=== PATIENT | male | born 1935 | race Caucasian/White ===

== ENCOUNTER → 2017-12-14 12:09 | Outpatient (CLI) | payer MEDICARE, SELFPAY ==
[2017-12-14 12:44] LABS: Basophils # 0.1 K/mm3 (0-0.2); Basophils % 0.7 % (0.1-2.0); Eosinophils # 0.1 K/mm3 (0.0-0.4); Eosinophils % 0.8 % (0.1-12.0); Hematocrit 41.7 % (42.0-52.0); Hemoglobin 13.9 g/dL (14.1-18.0); Lymphocytes # 1.4 K/mm3 (0.7-4.5); Lymphocytes % 19.7 K/mm3 (10-50); Mean Corpuscular HGB Conc 33.3 g/dL (31.8-35.4); Mean Corpuscular Volume 99.3 fl (80-94); Mean Platelet Volume 7.1 fl (7.4-10.4); Monocytes # 0.4 K/mm3 (0.1-1.0); Monocytes % 5.7 % (1.7-9.3); Neutrophils % 73.1 % (37.0-80.0); Platelet Count 230 K/mm3 (142-424); Red Cell Distribution Width 13.9 % (11.5-17.5); White Blood Count 6.9 K/mm3 (4.8-10.8)
[2017-12-14 13:49] LABS: Anion Gap 10.2 mEq/L (5-15); Blood Urea Nitrogen 20 mg/dL (7-18); Carbon Dioxide 28 mmol/L (21.0-32.0); Chloride 106 mmol/L (98-107); Creatinine,Serum 0.88 mg/dL (0.70-1.30); Estimated Glomerular Filt Rate 83 ml/min (>60); GFR (African American) 101 ML/MIN (>60); Glucose 193 mg/dL (74-106); Potassium 4.2 mmoL/L (3.5-5.1); Sodium 140 mmol/L (136-145)
== END ==
PROVIDERS: PCP Family Medicine; Visit Provider Orthopaedic Surgery
DX: M25.562 Pain in left knee (principal); Z01.818 Encounter for other preprocedural examination; S83.241A Other tear of medial meniscus, current injury, right knee, initial encounter
CPT/HCPCS: 36415; 80048; 85025; 93005

== ENCOUNTER 2017-12-19 06:00 | Day surgery (SDC) | payer MEDICARE, SELFPAY ==
[2017-12-16 12:51] VITALS: BMI 24.3
[2017-12-19] VITALS (12 sets, daily range): BP systolic 104–160; BP diastolic 55–77; PULSE 55–78; RESP 12–26; TEMP 36.2–36.6; O2SAT 94–98
--- NOTE | 2017-12-19 06:59 | HMH.ANESCL ---
[facility] Anesthesia Checklist - Structural Data Admitted From: Home Planned Operative Procedure/s: knee arthroscopy Consent for Planned Operative Procedure(s) Verified: Yes Verified Documents: Surgical Consent - Airway Assessment C-Spine Mobility Assessed: Yes TMJ Mobility Assessed: Yes Dentition: Good Dentition - Neurological Assessment Level of Consciousness: Awake, Alert - Anesthesia Plan Anesthesia Risk discussed: Yes Anesthesia Plan: Verified ASA Class: II Anesthesia Type: General [facility] Anesthesia HX I have reviewed the patient's past medical history: Yes Medical History: Reports:: Cancer (PROSTATE) Denies:: Diabetes Mellitus Type 1, Diabetes Mellitus Type 2, Internal Pacemaker, MRSA, Seizures Other Medical History: Reports: Arthritis, Cataracts, Sinus Problems. Denies: Blood Transfusion Reaction Other Surgeries: Yes: Cancer Surgery, Hernia Repair, Other. No: Pacemaker Amputation: No Fractures: No *Family Hx:: Coronary Artery Disease, Hyperlipidemia, Hypertension
--- NOTE | 2017-12-19 09:10 | P.PN_ITS ---
[facility] Anesthesia Record Part II Discharge Time: 09:40 Destination: [facility] PACU nurse assessment reviewed?: Yes Patient Condition:: Good Anesthesia Complications:: None
--- NOTE | 2017-12-19 09:10 | P.PN_ITS ---
[facility] Anesthesia Record Part I Intake, IV Amount: 1,100 Estimated blood loss (mL): 0 Urine output (mL): 0 Blood Pressure: 137/75 SaO2: 95 Pulse Rate: 78 Respiratory Rate: 12 Temperature: 97.8 F Patient is:: Drowsy, Stable Stable to PACU at:: 09:10
--- NOTE | 2017-12-19 09:10 | HMH.ANESII ---
[facility] Anesthesia Record Part II Discharge Time: 09:40 Destination: [facility] PACU nurse assessment reviewed?: Yes Patient Condition:: Good Anesthesia Complications:: None
--- NOTE | 2017-12-20 11:13 | HMH.OPNOTE ---
Date of procedure: 12/19/17 Pre-op Diagnosis:: Left knee medial meniscal tear Post-op diagnosis:: other (1)Left knee medial meniscal tear 2) left knee medial plica syndrome) Procedure performed:: 1) arthroscopic debridement complex left medial meniscal tear 2) arthroscopic debridement symptomatic left medial plica syndrome Surgeon:: Patrick Breen MD TRAINING INSTRUCTOR:: Other Anesthesia: LMA Estimated blood loss (mL): 2 Operative findings:: The patient is an 82-year-old male with a degenerative left medial meniscal tear which is complex in nature. This is been symptomatic and is continuing to be painful to the patient and places him at risk for the knee buckling and for him falling. Arthroscopic debridement is indicated to remove the tear as a source of pain. An incidental finding of a symptomatic medial plica rubbing and abrading the articular cartilage of the medial femoral condyle was encountered as well. Due to its effect on the articular cartilage, reduction of the plica is indicated. Both these procedures are medically necessary and appropriate and are considered standard of care Examination under anesthesia showed the need to be ligamentously stable. The patella tracked normally within the trochlea. Grade 1 and 2 chondromalacial changes of the patella were present. Overall, the articular cartilage was in surprisingly good condition for an 82-year-old gentleman. There was a symptomatic medial plica draping over the medial femoral condyle. This was clearly abrading the cartilage. A complex degenerative medial meniscal tear was present in the posterior aspect of the medial meniscus. The anterior medial meniscus was unremarkable and the posterior horn itself was intact. The anterior and posterior cruciate ligaments were intact. The lateral compartment was in excellent condition with minor fraying changes of the meniscus and mild degenerative changes of the articular cartilage. The medial and lateral gutters were cleaned and no loose bodies were found. The suprapatellar pouch showed no evidence of loose bodies. ARTHROSCOPIC IMAGES 001 shows the anterior cruciate ligament 002-005 show the lateral compartment and lateral meniscus 006 shows the central ridge of the patella. 007-008 of the lateral and medial aspects of the patellofemoral joint respectively 009 shows grade 3 changes of the medial femoral condyle 010 as the anterior and mid substance of the medial meniscus as well as the medial femoral condyle 011 shows the degenerative tear of the posterior aspect the medial femoral condyle 012 shows grade III chondromalacia of the medial femoral condyle more posteriorly than 011 013 shows the meniscal tear again 014-does the medial meniscus status post debridement not 015-016 debridement of the medial synovial plica 017-018 showed the plica status post debridement not now no longer engaging the medial femoral condyle and demonstrating an area of abrasion of the articular cartilage of the medial femoral condyle caused by the plica Operative note:: The patient was given a general anesthetic all body parts were well padded. The involved left knee was prepped and draped in the usual sterile fashion and the right knee was placed in a well leg li, again well padded. Examination under anesthesia was conducted and the proposed portal sites injected with lidocaine with epinephrine. 6 mL total was used. We then created an inferior anterolateral portal, inserted the 4 mm 30? arthroscope, and perform the initial examination of the knee. The notch was inspected the patient was placed in a figure 4 position. The suprapatellar pouch and the patellofemoral articulation was visualized. The medial lateral gutters were visualized. To optimize visualization medially, we gently stressed the patient against a lateral post. With assistance of a spinal needle, we created the inferior anteromedial portal and through the 2 portals conducted the surgery. We used a probe
--- NOTE | 2017-12-20 11:18 | P.OP_ITS ---
Date of procedure: 12/19/17 Pre-op Diagnosis:: Left knee medial meniscal tear Post-op diagnosis:: other (1)Left knee medial meniscal tear 2) left knee medial plica syndrome) Procedure performed:: 1) arthroscopic debridement complex left medial meniscal tear 2) arthroscopic debridement symptomatic left medial plica syndrome Surgeon:: Patrick Breen MD EYEGLASS FITTER:: Other Anesthesia: LMA Estimated blood loss (mL): 2 Operative findings:: The patient is an 82-year-old male with a degenerative left medial meniscal tear which is complex in nature. This is been symptomatic and is continuing to be painful to the patient and places him at risk for the knee buckling and for him falling. Arthroscopic debridement is indicated to remove the tear as a source of pain. An incidental finding of a symptomatic medial plica rubbing and abrading the articular cartilage of the medial femoral condyle was encountered as well. Due to its effect on the articular cartilage, reduction of the plica is indicated. Both these procedures are medically necessary and appropriate and are considered standard of care Examination under anesthesia showed the need to be ligamentously stable. The patella tracked normally within the trochlea. Grade 1 and 2 chondromalacial changes of the patella were present. Overall, the articular cartilage was in surprisingly good condition for an 82-year-old gentleman. There was a symptomatic medial plica draping over the medial femoral condyle. This was clearly abrading the cartilage. A complex degenerative medial meniscal tear was present in the posterior aspect of the medial meniscus. The anterior medial meniscus was unremarkable and the posterior horn itself was intact. The anterior and posterior cruciate ligaments were intact. The lateral compartment was in excellent condition with minor fraying changes of the meniscus and mild degenerative changes of the articular cartilage. The medial and lateral gutters were cleaned and no loose bodies were found. The suprapatellar pouch showed no evidence of loose bodies. ARTHROSCOPIC IMAGES 001 shows the anterior cruciate ligament 002-005 show the lateral compartment and lateral meniscus 006 shows the central ridge of the patella. 007-008 of the lateral and medial aspects of the patellofemoral joint respectively 009 shows grade 3 changes of the medial femoral condyle 010 as the anterior and mid substance of the medial meniscus as well as the medial femoral condyle 011 shows the degenerative tear of the posterior aspect the medial femoral condyle 012 shows grade III chondromalacia of the medial femoral condyle more posteriorly than 011 013 shows the meniscal tear again 014-does the medial meniscus status post debridement not 015-016 debridement of the medial synovial plica 017-018 showed the plica status post debridement not now no longer engaging the medial femoral condyle and demonstrating an area of abrasion of the articular cartilage of the medial femoral condyle caused by the plica Operative note:: The patient was given a general anesthetic all body parts were well padded. The involved left knee was prepped and draped in the usual sterile fashion and the right knee was placed in a well leg li, again well padded. Examination under anesthesia was conducted and the proposed portal sites injected with lidocaine with epinephrine. 6 mL total was used. We then created an inferior anterolateral portal, inserted the 4 mm 30? arthroscope, and perform the initial examination of the knee. The notch was inspected the patient was placed in a figure 4 position. The suprapatellar pouch and the patellofemoral articulation was visualized. The me
== END 2017-12-19 11:07 | disposition home or self-care (01) ==
PROVIDERS: Family Provider Family Medicine; PCP Family Medicine; Visit Provider Orthopaedic Surgery
PROC: (CPT 29870; principal; 2017-12-19 07:30)
DX: M67.52 Plica syndrome, left knee (principal); M23.204 Derangement of unspecified medial meniscus due to old tear or injury, left knee
CPT/HCPCS: 29881; 96374; J2405

== ENCOUNTER → 2018-09-27 07:29 | Outpatient (CLI) | payer MEDICARE, SELFPAY ==
[2018-09-27 09:53] LABS: Alanine Aminotransferase 20 U/L (12-78); Albumin Level 3.7 gm/dL (3.4-5.0); Albumin/Globulin Ratio 1.8 (1.1-1.8); Alkaline Phosphatase 75 U/L (46-116); Anion Gap 12.6 mEq/L (5-15); Aspartate Amino Transferase 14 U/L (15-37); Bilirubin,Total 0.5 mg/dL (0.2-1.0); Blood Urea Nitrogen 20 mg/dL (7-18); Calcium 8.6 mg/dL (8.5-10.1); Carbon Dioxide 28 mmol/L (21.0-32.0); Chloride 110 mmol/L (98-107); Chol/HDL Ratio 3.3 (1-3.5); Cholesterol 109 mg/dL (140-200); Creatinine,Serum 0.95 mg/dL (0.70-1.30); Estimated Glomerular Filt Rate 76 ml/min (>60); GFR (African American) 92 ML/MIN (>60); Globulin 2.1 gm/dl (1.3-3.2); Glucose 101 mg/dL (74-106); HDL Cholesterol 33 mg/dL (27-67); LDL Cholesterol 59 mg/dL (0-130); Potassium 4.6 mmoL/L (3.5-5.1); Sodium 146 mmol/L (136-145); Thyroid Stimulating Hormone 3.01 uIU/ml (0.358-3.740); Total Protein,Serum 5.8 gm/dL (6.4-8.2); Triglycerides 84 mg/dL (30-200); VLDL Cholesterol 17 mg/dL (0-40)
[2018-09-27 09:58] LABS: Prostate Specific Ag, Diagnost 0.03 ng/mL (0.0-4.0)
[2018-09-27 13:23] LABS: Hemoglobin A1C 5.7 % (0.0-7.0)
== END ==
PROVIDERS: Visit Provider Physician Assistant
DX: E78.2 Mixed hyperlipidemia (principal); E03.9 Hypothyroidism, unspecified; Z86.39 Personal history of other endocrine, nutritional and metabolic disease; Z85.46 Personal history of malignant neoplasm of prostate; Z00.00 Encounter for general adult medical examination without abnormal findings
CPT/HCPCS: 36415; 80053; 80061; 83036; 84153; 84443

== ENCOUNTER → 2019-10-01 07:38 | Outpatient (CLI) | payer MEDICARE, SELFPAY ==
[2019-10-01 10:03] LABS: Alanine Aminotransferase 16 U/L (12-78); Albumin Level 3.7 gm/dL (3.4-5.0); Albumin/Globulin Ratio 1.9 (1.1-1.8); Alkaline Phosphatase 65 U/L (46-116); Anion Gap 12.1 mEq/L (5-15); Aspartate Amino Transferase 11 U/L (15-37); Bilirubin,Total 0.5 mg/dL (0.2-1.0); Blood Urea Nitrogen 20 mg/dL (7-18); Calcium 8.7 mg/dL (8.5-10.1); Carbon Dioxide 28 mmol/L (21.0-32.0); Chloride 111 mmol/L (98-107); Chol/HDL Ratio 2.9 (1-3.5); Cholesterol 114 mg/dL (140-200); Creatinine,Serum 0.89 mg/dL (0.70-1.30); Estimated Glomerular Filt Rate 82 ml/min (>60); GFR (African American) 99 ML/MIN (>60); Globulin 1.9 gm/dl (1.3-3.2); Glucose 113 mg/dL (74-106); HDL Cholesterol 39 mg/dL (27-67); LDL Cholesterol 62 mg/dL (0-130); Potassium 4.1 mmoL/L (3.5-5.1); Sodium 147 mmol/L (136-145); Thyroid Stimulating Hormone 3.36 uIU/ml (0.358-3.740); Total Protein,Serum 5.6 gm/dL (6.4-8.2); Triglycerides 66 mg/dL (30-200); VLDL Cholesterol 13 mg/dL (0-40)
[2019-10-01 10:21] LABS: Prostate Specific Ag Screen < 0.1 ng/mL (0.0-4.0)
[2019-10-01 10:23] LABS: Hemoglobin A1C 6.1 % (0.0-7.0)
== END ==
PROVIDERS: Visit Provider Physician Assistant
DX: I10 Essential (primary) hypertension (principal); E78.2 Mixed hyperlipidemia; Z13.29 Encounter for screening for other suspected endocrine disorder; Z86.39 Personal history of other endocrine, nutritional and metabolic disease; Z12.5 Encounter for screening for malignant neoplasm of prostate; Z85.46 Personal history of malignant neoplasm of prostate
CPT/HCPCS: 36415; 80053; 80061; 83036; 84443; G0103

== ENCOUNTER → 2020-09-26 07:49 | Outpatient (CLI) | payer MEDICARE, SELFPAY ==
[2020-09-26 07:55] LABS: MANUAL DIFFERENTIAL MANUAL DIFFERENTIAL (MANUAL DIFF)
[2020-09-26 08:35] LABS: Basophils # 0.1 K/mm3 (0-0.2); Basophils % 0.7 % (0.1-2.0); Eosinophils # 0.1 K/mm3 (0.0-0.4); Hematocrit 43.5 % (42.0-52.0); Hemoglobin 14.9 g/dL (14.1-18.0); Lymphocytes # 1.5 K/mm3 (0.7-4.5); Lymphocytes % 22.5 % (10-50); Mean Corpuscular HGB Conc 34.4 g/dL (31.8-35.4); Mean Corpuscular Hemoglobin 34.3 pg (27.0-31.2); Mean Corpuscular Volume 99.9 fl (80-94); Mean Platelet Volume 7.4 fl (7.4-10.4); Monocytes # 0.5 K/mm3 (0.1-1.0); Monocytes % 8.1 % (1.7-9.3); Neutrophils # 4.4 K/mm3 (1.8-7.8); Neutrophils % 67.7 % (37.0-80.0); Platelet Count 247 K/mm3 (142-424); Red Blood Count 4.35 M/mm3 (4.60-6.20); Red Cell Distribution Width 14.1 % (11.5-17.5); White Blood Count 6.6 K/mm3 (4.8-10.8)
[2020-09-26 10:19] LABS: Alanine Aminotransferase 13 U/L (12-78); Albumin Level 4.3 g/dl (3.5-5.0); Albumin/Globulin Ratio 2.4 (1.1-1.8); Alkaline Phosphatase 62 U/L (38-126); Anion Gap 11.8 mEq/L (5-15); Aspartate Amino Transferase 24 U/L (17-59); Bilirubin,Total 0.7 mg/dl (0.2-1.3); Blood Urea Nitrogen 22 mg/dl (9-20); Calcium 9.2 mg/dl (8.4-10.2); Carbon Dioxide 28 mmol/L (22.0-30.0); Chloride 108 mmol/L (98-107); Cholesterol 115 mg/dl (140-200); Estimated Glomerular Filt Rate 81 ml/min (>60); GFR (African American) 98 ML/MIN (>60); Globulin 1.8 g/dL (1.3-3.2); Glucose 105 mg/dl (74-100); HDL Cholesterol 38 mg/dl (40-60); Potassium 4.8 mmoL/L (3.5-5.1); Sodium 143 mmol/L (136-145); Total Protein,Serum 6.1 g/dl (6.3-8.2); Triglycerides 82 mg/dl (30-150); VLDL Cholesterol 16 mg/dL (0-40)
[2020-09-26 10:30] LABS: Direct LDL Cholesterol 72.98 mg/dL (100-129)
[2020-09-26 10:37] LABS: Lymphocytes % 28 % (10-50); Monocytes % 7 % (2-9); Neutrophils % 65 % (42-76); Platelet Estimate Normal; RBC Morphology Normal; Total Cells Counted 100
[2020-09-26 10:48] LABS: Thyroid Stimulating Hormone 2.83 uIU/mL (0.465-4.68)
[2020-09-26 10:56] LABS: Hemoglobin A1C 5.6 % (4.0-6.0)
[2020-09-26 15:34] LABS: Microalbumin/Creatinine Ratio 5.4
[2020-09-26 16:06] LABS: Creatinine,Urine Random 124 mg/dL (Not Estab.)
== END ==
PROVIDERS: Visit Provider Nurse Practitioner
DX: I10 Essential (primary) hypertension (principal); E78.2 Mixed hyperlipidemia; Z79.899 Other long term (current) drug therapy
CPT/HCPCS: 36415; 80053; 80061; 82043; 82570; 83036; 84443; 85007; 85014; 85018; 85048; 85049

== ENCOUNTER → 2020-10-03 09:53 | Outpatient (CLI) | payer MEDICARE, SELFPAY ==
--- NOTE | 2020-10-03 09:59 | CA_ITS ---
APPROVED REPORT EXAM: Comprehensive 2D, Doppler, and color-flow Echocardiogram Drilling Assistant: Leanna Jorgensen RDCS Ht: 5 ft 10 in Wt: 170lbs BSA: 1.95 BP: 110/60 mmHg Indications: CAD,EDEMA,H/O CABG,HTN,HLP 2D Dimensions LVOT 2.39 cm (M/F) 1.5-2.5 M-Mode Dimensions RVDd 2.73 cm (0.9-2.6) LA Diam 3.54 cm (1.9-4.0) LVDd 4.98 cm (3.5-5.7) Ao Diam 4.30 cm (2.0-3.7) LVDs 3.96 cm (3.5-5.7) IVSd 0.89 cm (0.6-1.1) PWd 1.11 cm (0.6-1.1) EF (Teich) 41.70% FS 20.50% EDV (Teich) 117.10 mL ESV (Teich) 68.30 mL LV Diastology E Decel Time 260.00 (160-240 msec) E/A Ratio 0.7 MED E' 6.10 (< 7 cm/sec) E'/MED E' Ratio 7.43 (>14) LAT E' 7.90 (<10 cm/sec) E/LAT E' Ratio 5.73 (>14) Aortic Valve AI PHT 566.00 ms Mitral Valve MV E Max Anoop. 45.00 (40-130 cm/s) MV A Velocity 62.00 (40-130 cm/s) E/A Ratio 0.73 MV Decel. Time 260.00 (160-240 ms) MV PHT 76.00 ms Left Ventricle Left atrium is mildly enlarged, left ventricle is normal size, mild concentric left ventricular hypertrophy, visually estimated ejection fraction 55% with no regional wall motion abnormality, grade 1 diastolic dysfunction seen without tissue Doppler evidence of raise left atrial pressure. Right Ventricle Right atrium and right ventricle mildly enlarged with normal contractility. Aortic Valve Aortic valve is thickened and calcified leaflet chordae display good mobility, there is no aortic stenosis, there is mild aortic insufficiency. Mitral Valve Mitral valve leaflets are minimally thickened, there is mild mitral regurgitation. Tricuspid Valve Tricuspid valve is grossly normal, there is mild tricuspid regurgitation, tricuspid regurgitation jet velocity is inadequate for calculation of the right ventricular systolic pressure. Pulmonic Valve Pulmonic valve is poorly visualized. Great Vessels Aortic root is normal size. Pericardium No significant pericardial effusion noted. Conclusion 1. Mild biatrial alignment, normal left ventricular size, mild concentric left ventricular hypertrophy, visually estimated ejection fraction 55% with no regional wall motion abnormality, grade 1 diastolic dysfunction seen without tissue Doppler evidence of raise left atrial pressure. 2. Mildly enlarged right ventricle with normal contractility. 3. Mild aortic, mild mitral and tricuspid regurgitation. 4. No significant pericardial effusion noted. Electronically signed by : Cameron Arceo, 10/03/2020 12:10:29
== END ==
PROVIDERS: PCP Family Medicine; Visit Provider Nurse Practitioner
DX: R60.1 Generalized edema (principal); E78.2 Mixed hyperlipidemia
CPT/HCPCS: 93306

== ENCOUNTER → 2022-02-02 08:05 | Outpatient (CLI) | payer MEDICARE, SELFPAY ==
--- NOTE | 2022-02-02 08:11 | XR_ITS ---
FINAL REPORT CLINICAL HISTORY: MARK SHOULDER PAIN, no injury FINDINGS: RIGHT SHOULDER 3 views demonstrate no acute fracture or dislocation. There are mild degenerative changes of the acromioclavicular and glenohumeral joints. The visualized bony structures are well aligned. No soft tissue abnormality is seen. IMPRESSION: Mild degenerative change. Reviewed, Interpreted and Dictated by Amos Nguyen III, MD Transcribed by Romana Carlin Authenticated by Amos Nguyen III, MD on 02/02/2022 09:42:48 AM [facility]
--- NOTE | 2022-02-02 08:11 | XR_ITS ---
FINAL REPORT CLINICAL HISTORY: STIFFNESS OF CERVICAL SPINE FINDINGS: CERVICAL SPINE Four views were obtained. There is no acute fracture. There is mild degenerative change. There is mild retrolisthesis of C5 in relation to C4 and C6. There are soft tissue calcifications posterior to C4 and C5. There is mild left neuroforaminal narrowing at C5 and C6. IMPRESSION: Mild degenerative change with mild left neuroforaminal narrowing at C5 and C6. Reviewed, Interpreted and Dictated by Amos Nguyen III, MD Transcribed by Romana Carlin Authenticated by Amos Nguyen III, MD on 02/02/2022 09:42:56 AM [facility]
--- NOTE | 2022-02-02 08:11 | XR_ITS ---
FINAL REPORT CLINICAL HISTORY: MARK SHOULDER PAIN, no injury FINDINGS: LEFT SHOULDER 3 views demonstrate no acute fracture or dislocation. There are mild degenerative changes of the acromioclavicular and glenohumeral joints. The visualized bony structures are well aligned. No soft tissue abnormality is seen. IMPRESSION: Mild degenerative change. Reviewed, Interpreted and Dictated by Amos Nguyen III, MD Transcribed by Romana Carlin Authenticated by Amos Nguyen III, MD on 02/02/2022 09:42:[address] [facility]
== END ==
PROVIDERS: PCP Family Medicine; Visit Provider Nurse Practitioner
DX: M43.6 Torticollis (principal); M25.512 Pain in left shoulder; M25.511 Pain in right shoulder
CPT/HCPCS: 72050; 73030

== ENCOUNTER → 2022-07-27 15:44 | Outpatient (CLI) | payer MEDICARE, SELFPAY ==
--- NOTE | 2022-07-27 16:13 | CT_ITS ---
PROCEDURE INFORMATION: Exam: CT Abdomen And Pelvis With Contrast Exam date and time: 07/27/2022 5:38 PM Age: 86 years old Clinical indication: Abdominal pain; Other: Bilateral flank pain; Additional info: Kidney stones TECHNIQUE: Imaging protocol: Computed tomography of the abdomen and pelvis with contrast. Radiation optimization: All CT scans at this facility use at least one of these dose optimization techniques: automated exposure control; mA and/or kV adjustment per patient size (includes targeted exams where dose is matched to clinical indication); or iterative reconstruction. Contrast material: ISOVUE; Contrast volume: 75 ml; Contrast route: IV; COMPARISON: [facility]T MRI-LOW EXT ANY JOINT W/O-LT 11/10/2017 1:08 PM FINDINGS: Diaphragm: Small hiatal hernia. Liver: Normal. No mass. Gallbladder and bile ducts: Status post cholecystectomy. Pancreas: Normal enhancement. No ductal dilation. Spleen: No splenomegaly. Adrenal glands: No mass. Kidneys and ureters: Renal cysts measuring up to 1 cm. Punctate nonobstructing left lower pole renal calcification. Cnid-of-rwgbixft dilation of the right renal collecting system and ureter with 2.7 x 2.3 x 3.2 cm soft tissue density near the right UVJ. Stomach and bowel: No obstruction. No mucosal thickening. Appendix: No evidence of appendicitis. Intraperitoneal space: No free air. No significant fluid collection. Vasculature: Calcified atherosclerosis. No aneurysm. Lymph nodes: No enlarged lymph nodes. Urinary bladder: No acute abnormality. Reproductive: No acute abnormality. Bones/joints: Median sternotomy wires. Soft tissues: No soft tissue swelling. IMPRESSION: Fswl-or-rqzwcpug dilation of the right renal collecting system and ureter with 2.7 x 2.3 x 3.2 cm soft tissue density near the right UVJ concerning for malignancy until proven otherwise.
[2022-07-27 17:32] LABS: Blood Urea Nitrogen 22 mg/dl (9-20); Estimated Glomerular Filt Rate 53 ml/min (>60); GFR (African American) 64 ML/MIN (>60)
== END ==
PROVIDERS: PCP Nurse Practitioner; Visit Provider Nurse Practitioner
DX: N20.0 Calculus of kidney (principal)
CPT/HCPCS: 36415; 74177; 82565; 84520; Q9967

== ENCOUNTER → 2022-08-11 06:04 | Outpatient (CLI) | payer MEDICARE, SELFPAY | PROVIDERS: Visit Provider Urology | DX: N13.30 Unspecified hydronephrosis (principal); R31.0 Gross hematuria; Z01.812 Encounter for preprocedural laboratory examination; Z20.822 Contact with and (suspected) exposure to COVID-19 | CPT/HCPCS: C9803; U0003; U0005 ==

== ENCOUNTER 2022-08-13 07:06 | Day surgery (SDC) | payer MEDICARE, SELFPAY ==
[2022-08-11 10:28] VITALS: BMI 24.3
[2022-08-13] VITALS (11 sets, daily range): BP systolic 135–152; BP diastolic 60–84; PULSE 70–86; RESP 10–18; TEMP 36.2–38; O2SAT 93–98
[2022-08-13 07:43] LABS: Basophils # 0.1 K/mm3 (0-0.2); Basophils % 0.6 % (0.1-2.0); Eosinophils # 0.1 K/mm3 (0.0-0.4); Eosinophils % 0.7 % (0.1-12.0); Hematocrit 36.7 % (42.0-52.0); Lymphocytes # 1.5 K/mm3 (0.7-4.5); Lymphocytes % 15.3 % (10-50); Mean Corpuscular HGB Conc 32.7 g/dL (31.8-35.4); Mean Corpuscular Hemoglobin 33.2 pg (27.0-31.2); Mean Corpuscular Volume 101.5 fl (80-94); Mean Platelet Volume 7.9 fl (7.4-10.4); Monocytes # 0.6 K/mm3 (0.1-1.0); Monocytes % 6.3 % (1.7-9.3); Neutrophils # 7.6 K/mm3 (1.8-7.8); Platelet Count 412 K/mm3 (142-424); Red Blood Count 3.62 M/mm3 (4.60-6.20); Red Cell Distribution Width 14.3 % (11.5-17.5); White Blood Count 9.9 K/mm3 (4.8-10.8)
[2022-08-13 07:54] LABS: Alanine Aminotransferase 17 U/L (12-78); Albumin/Globulin Ratio 1.6 (1.1-1.8); Alkaline Phosphatase 137 U/L (38-126); Anion Gap 14.6 mEq/L (5-15); Aspartate Amino Transferase 24 U/L (17-59); Bilirubin,Total 0.5 mg/dl (0.2-1.3); Blood Urea Nitrogen 18 mg/dl (9-20); Calcium 8.5 mg/dl (8.4-10.2); Carbon Dioxide 25 mmol/L (22.0-30.0); Chloride 105 mmol/L (98-107); Creatinine Clearance Estimated 46 mL/min (50-200); Estimated Glomerular Filt Rate 53 ml/min (>60); GFR (African American) 64 ML/MIN (>60); Globulin 2.5 g/dL (1.3-3.2); Glucose 115 mg/dl (74-100); Potassium 3.6 mmoL/L (3.5-5.1); Sodium 141 mmol/L (136-145); Total Protein,Serum 6.5 g/dl (6.3-8.2)
--- NOTE | 2022-08-13 09:01 | P.PN_ITS ---
[facility] Medical History Arthritis Cataract Cholecystectomy planned Hernia History of COVID-19 Hyperlipidemia Hypertension Kidney stone Medial meniscus tear Prostate cancer genetic susceptibility Urinary tract infection Surgical History H/O heart artery stent S/P CABG x 6 S/P TURP (status post transurethral resection of prostate) Family History Other No significant family history Social History (Updated 08/13/22 @ 07:34 by Ligia Patel RN) Smoking Status: Never smoker alcohol intake: never substance use type: denies use current occupational status: retired Travel in the last 8 weeks: None household members: spouse housing: house marital status: current occupation: [employer] current occupational exposures/hazards: No caffeine: Yes [facility] Anesthesia Checklist Patient Identification Patient Identification: Arm Band and Verbal (Name & ) Structural Data Admitted From: Home Planned Operative Procedure/s: TURB/Right Ureteroscopy Consent for Planned Operative Procedure(s) Verified: Yes Verified Documents: Surgical Consent NPO Status Verified Time NPO: 00:00 Additional verifications Anesthesia Reactions: No Hx Blood Transfusions: No Blood Transfusion Reaction: No Airway Assessment C-Spine Mobility Assessed: Yes TMJ Mobility Assessed: Yes Dentition: Good Dentition Neurological Assessment Level of Consciousness: Awake, Alert and Appropriate Anesthesia Plan Anesthesia Risk discussed: Yes ASA Class: III Anesthesia Type: General
--- NOTE | 2022-08-13 10:14 | XR_ITS ---
FINAL REPORT CLINICAL HISTORY: URETEROSCOPY IN THE OR ft: 1:36 FINDINGS: FLUOROSCOPY IN THE OR HISTORY:ureteroscopy FINDINGS: Fluoroscopy was provided by the radiology department for the clinical service. 3 intraoperative films were obtained during the procedure. Fluoroscopy time: 1 minute 36 seconds. IMPRESSION: Intraoperative fluoroscopy Films reviewed , interpreted and dictated by Dr. Marte. Transcribed by Jon Ponce PA-C. Reviewed, Interpreted and Dictated by Panchito Marte MD Transcribed by PURA Ordaz Authenticated and [facility]
--- NOTE | 2022-08-13 10:16 | EXP.ANES.I ---
[facility] Anesthesia Record Part I Anesthesia Record I Intake, IV Amount: 1,000 Estimated blood loss (mL): 10 Urine output (mL): 100 Blood Pressure: 138/72 SaO2: 93 Pulse Rate: 85 Respiratory Rate: 10 Temperature: 97.2 F Patient is:: Drowsy Stable to PACU at:: 10:10
--- NOTE | 2022-08-13 10:48 | PC.NURSE ---
1043-detailed report called to WENDY David 1044-pt transported to post op via stretcher w/bethany rails up and left in care of WENDY David with bed locked in lowest position, vss, pt stable
--- NOTE | 2022-08-13 14:14 | P.OP_ITS ---
Date of procedure: 08/13/22 Pre-op Diagnosis:: Gross hematuria, right hydroureteronephrosis Post-op Diagnosis:: Small bladder stone on a surgical clip, right distal ureteral stricture, right lateral wall inflammation. Procedure performed:: Cystoscopy with right retrograde pyelogram and right stent placement, attempted right ureteroscopy, bladder biopsy and fulguration, bladder stone and foreign body removal. Surgeon:: Álvaro Pierce MD AUTOMOBILE MECHANIC APPRENTICE:: Other Anesthesia: GETA Estimated blood loss (mL): 0 Clinical Note:: 86-year-old white male with history of prostate cancer with recent gross hematuria. CT scan revealed right hydroureteronephrosis and a soft tissue mass at the right UVJ. Operative findings:: Cystoscopy revealed a small bladder stone at the 6 o'clock position near the bladder neck with a small clip attached. Right retrograde pyelogram revealed a 3 cm right distal ureteral narrowing with hydroureteronephrosis proximally. There is also some inflammation along the right lateral wall which was biopsied. Ureteroscopy was unable to be performed due to the narrowing of the right distal ureter. Operative note:: Patient taken to the operating room after informed consent was obtained. He was placed on the operating table in supine position and general anesthesia administered. Preoperative antibiotics and sequential compression devices placed. He was placed into the dorsolithotomy position and prepped draped in standard surgical fashion. 20 Claude passed into the urethra and into the bladder without difficulty. The bladder was examined in a systematic fashion. Small bladder stone was noted at the 6 o'clock position near the bladder neck. Rigid graspers were then used to remove the stone and it was attached to a surgical clip. Was removed without difficulty and passed off as a specimen. Looking back into the bladder there was no bleeding from that point. Survey of the bladder revealed some inflammation along the right lateral wall and a cream- colored roundish defect noted. 2 biopsies were taken of this tissue and the area was fulgurated. A cone-tip catheter passed into the right ureteral orifice and contrast injected in a retrograde fashion. Retrograde showed a distal ureteral narrowing for about a 3 to 4 cm length. Above the narrowing was dilation of the ureter and some tortuosity of the proximal ureter and hydroneph rosis. I attempted to pass a 0.035 sensor guidewire into the right ureteral orifice but it would not pass. I then removed the cystoscope and passed a semirigid ureteroscope into the bladder and attempted to cannulate the right ureter but I could not. Then used a angled Glidewire through the ureteroscope and was able to manipulate it by the stricture proximally into the right renal pelvis. A curl was noted in the wire proximally where the ureter was tortuous. I then removed the ureteroscope passed a ureteral catheter Glidewire and removed the Glidewire and passed the 0.035 sensor guidewire into the renal pelvis and remove the ureteral catheter. The cystoscope was then replaced and a 4.8 x 26 Divehi stent passed over the guidewire and the guidewire removed. A good curl was noted proximally and distally. The string was removed. Caballero catheter was placed. Patient tolerated procedure well no complications. There was clear urine noted from the ureteral stent after placement. I discussed the findings with patient's and we will see him back next week to discuss the pathology to discuss our next step. Condition: stable Disposition: PACU Specimens:: Bladder biopsy x2, bladder stone with surgical clip. Complications:: None
--- NOTE | 2022-08-16 15:22 | EXP.ANES.II ---
[facility] Anesthesia Record Part II Anesthesia Record Part II Discharge Time: 10:44 Destination: Surgical Day Care (OP Surgery) PACU nurse assessment reviewed?: Yes Patient Condition:: Good Anesthesia Complications:: None Swallowing reflex intact?: Yes Cyanosis?: No Blood Pressure: 139/71 Pulse Rate: 71 Temperature: 98 F Mental Status: Alert & Oriented Pain level:: 0 Nausea and/or vomitting:: None Intake, IV Amount: 0
[2022-08-16 15:23] VITALS: BP 139/71; PULSE 71; TEMP 36.6
== END 2022-08-13 11:30 | disposition home or self-care (01) ==
PROVIDERS: PCP Nurse Practitioner; Visit Provider Urology
PROC: 0TJ98ZZ Inspection of Ureter, Via Natural or Artificial Opening Endoscopic (ICD-10-PCS; CPT 52351; principal; 2022-08-13 08:15)
DX: N21.0 Calculus in bladder (principal); N13.5 Crossing vessel and stricture of ureter without hydronephrosis; N30.91 Cystitis, unspecified with hematuria; Z79.899 Other long term (current) drug therapy; C67.9 Malignant neoplasm of bladder, unspecified
CPT/HCPCS: 52005; 52204; 52282; 74018; 76000; 80053; 85025; 88300; 88305; 96374; C1769; C2617; J2405

== ENCOUNTER 2022-08-30 22:24 | Emergency (ER) | payer MEDICARE, SELFPAY ==
[2022-08-30 22:25] VITALS: BP 180/80; PULSE 83; RESP 20; TEMP 36.4; O2SAT 97; BMI 24.3
[2022-08-30 23:26] LABS: Microscopic, Urine URINE MICROSCOPIC (MICROSCOPIC)
--- NOTE | 2022-08-30 23:27 | PC.NURSE ---
Updated pt on POC. No needs or complaints voiced at this time.
[2022-08-30 23:34] LABS: Appearance,Urine CLEAR (Clear); Bilirubin,Urine Negative (Negative); Blood, Urine 3+ (Negative); Color,Urine YELLOW (Yellow); Glucose,Urine (UA) Negative (Negative); Ketones,Urine Negative (Negative); Leukocyte Esterase,Urine 2+ (Negative); Nitrate,Urine Negative (Negative); Protein,Urine 2+ (Negative); Specific Gravity, Urine >= 1.030 (1.005-1.030); Urobilinogen,Urine 0.2 EU/dl (0.2)
[2022-08-30 23:45] LABS: Bacteria,Urine 1+ /lpf; WBC,Urine 20-50 #/hpf (0-3); Yeast,Urine 2+ /lpf
--- NOTE | 2022-08-31 00:29 | PC.NURSE ---
Patients daughter asked for nurse to come to bedside. Per daughter we have to start this cancer journey in the morning and have to be in [place] at 9 am . Advised I would inform MD that she is ready to go. Per pt daughter, she isnt' ready to go, it's just a simple yes or no question regarding her fathers request for an indwelling vera catheter.
--- NOTE | 2022-08-31 00:46 | PC.NURSE ---
at to insert vera catheter
--- NOTE | 2022-08-31 00:48 | HMH.EDUROGM ---
Discharge Plan Disposition Patient Disposition: Home, Self-Care Prescriptions Prescriptions: New levofloxacin 500 mg tablet 500 mg PO DAILY Qty: 7 0RF No Action niacin [Niaspan Extended-Release] 1,000 mg tablet extended release 24 hr 1,000 mg PO QHS simvastatin 40 mg tablet 40 mg PO QAM clopidogrel [Plavix] 75 mg tablet 75 mg PO ONCE Hold Instructions: Resume on 08/18/22. nitroglycerin 0.4 mg tablet, sublingual 0.4 mg SUBLINGUAL Q5M PRN (Reason: CP) bpptmemc-fak-DH-lycopen-lutein [Centrum Silver Men] 300-600-300 mcg tablet 1 tab PO DAILY amlodipine 5 mg tablet 5 mg PO DAILY ramipril 10 mg capsule 10 mg PO QDAY Qty: 90 0RF aspirin 81 MG tablet,delayed release (DR/EC) 81 mg PO DAILY Hold Instructions: Resume on 08/18/22. Referrals Follow up/Referrals: Mariella Fox APRN [Primary Care Provider] - See instructions Clinical Impressions Clinical Impression: Urinary tract infection, Bladder cancer Instructions Patient Instructions: DI for Urinary Tract Infection (UTI), How to Care for Your Vera Catheter -- Male Discharge ED Provider: Lawrence Walters Male Urogenital HPI General Chief complaint: Urogenital-Male Stated complaint: cannot control bladder, has bladder cancer Time Seen by Provider: 08/31/22 00:48 Mode of Arrival: Family Vehicle Source of Information: Patient, Relative and Medical Record Limitations: No Limitations Description of Symptoms (Recalled from ER Triage Doc. by RN): Pt c/o bladder incontince for 2 wk. States he has bladder cancer and had an indwelling vera cath but removed it tonight about 1900. States he had taped the vera to his penis and noted swelling so he removed it. Pt would like to have a vera replaced and then is scheduled to see Dr. Vianey Pinon on to dollow up with the bladder cancer. History of Present Illness HPI Narrative: hx of bladder cancer and had vera and thenb ext catheter which leaked and had dribbling - has urology appt this week MD Complaint: dysuria and other (incont ) Onset (ago): day(s) Duration: intermittent Severity: moderate Reports denies other symptoms Related Data Home Medications Medication Instructions Recorded Confirmed clopidogrel 75 mg tablet (Plavix) 75 mg PO ONCE Blood thinner 12/01/17 08/31/22 olmzznyf-yru-fexih acid 300 1 tab PO DAILY Supplement 12/01/17 08/31/22 mcg-lycopene 600 mcg-lutein 300 mcg tablet (Centrum Silver Men) niacin 1,000 mg tablet,extended 1,000 mg PO QHS Heartburn 12/01/17 08/31/22 release 24 hr (Niaspan) nitroglycerin 0.4 mg sublingual 0.4 mg sublingual Q5M PRN CP 12/01/17 08/31/22 tablet simvastatin 40 mg tablet 40 mg PO QAM Cholesterol 12/01/17 08/31/22 aspirin 81 mg tablet,delayed 81 mg PO DAILY HEART. 12/16/17 08/31/22 release amlodipine 5 mg tablet 5 mg PO DAILY High blood pressure 07/13/22 08/31/22 Previous Rx's Medication Instructions Recorded ramipril 10 mg capsule 10 mg PO QDAY BP #90 caps 07/02/22 levofloxacin 500 mg tablet 500 mg PO DAILY #7 tabs 08/31/22 Allergies Allergy/AdvReac Type Severity Reaction Status Date / Time No Known Allergies Allergy Verified 08/19/22 14:32 [facility] Medical History Arthritis Cataract Cholecystectomy planned Hernia History of COVID-19 Hyperlipidemia Hypertension Kidney stone Medial meniscus tear Prostate cancer genetic susceptibility Urinary tract infection Surgical History H/O heart artery stent S/P CABG x 6 S/P TURP (status post transurethral resection of prostate) Family History Other No significant family history Social History Smoking Status: Never smoker alcohol intake: never substance use type: denies use current occupational statu
[2022-08-31 01:38] VITALS: BP 180/80; PULSE 83; RESP 18; TEMP 36.4; O2SAT 98
--- NOTE | 2022-08-31 01:38 | PC.NURSE ---
Patient was sent home with an indwelling vera catheter and instructions on usage. Patient verbalized understanding. Patient was given a leg bag and instructions on use. Patient states that he recently had a vera and a leg bag so he was well aware of how to transfer from one bag to the next.
== END 2022-08-31 01:40 | disposition home or self-care (01) ==
PROVIDERS: Emergency Provider Emergency Medicine; PCP Nurse Practitioner
DX: N39.0 Urinary tract infection, site not specified (principal); C67.9 Malignant neoplasm of bladder, unspecified; Z79.82 Long term (current) use of aspirin; Z79.899 Other long term (current) drug therapy; Z87.442 Personal history of urinary calculi; Z87.440 Personal history of urinary (tract) infections; M19.90 Unspecified osteoarthritis, unspecified site; E78.5 Hyperlipidemia, unspecified; Z86.16 Personal history of COVID-19; Z95.1 Presence of aortocoronary bypass graft; Z95.828 Presence of other vascular implants and grafts; I10 Essential (primary) hypertension
CPT/HCPCS: 51702; 81001; 87086; 87088; 87186; 99283